=== PATIENT | male | born 1965 | race Two or more races ===

== ENCOUNTER 2025-02-10 12:24 | Emergency (ER) | payer OTHER, SELFPAY ==
[2025-02-10 12:32] VITALS: BP 170/90; PULSE 62; RESP 18; TEMP 37.1; O2SAT 96; BMI 23.9
--- NOTE | 2025-02-10 12:34 | XR_ITS ---
Examination: Shoulder,left, 3 views Technique: Shoulder AP internal rotation, AP external rotation, Y view shoulder, 3 views Exam date and time :February 10, 2025 1237 hours INDICATIONS: Work injury to the shoulder today, shoulder pain. FINDINGS: Advanced glenohumeral joint No shoulder fracture or dislocation No foreign body IMPRESSION: No shoulder fracture or dislocation
--- NOTE | 2025-02-10 12:34 | XR_ITS ---
Examination: Humerus 2 views left Technique: Humerus, AP lateral 2 views Date and time of exam: February 10, 2025 1231 hours INDICATIONS: Work injury to the arm today, arm pain. FINDINGS: Advanced narrowing glenohumeral joint No acute fracture of the humerus No shoulder dislocation IMPRESSION: No acute fracture
--- NOTE | 2025-02-10 12:34 | XR_ITS ---
Examination: PA lateral chest 2 views TECHNIQUE: Upright PA lateral chest 2 views Date and time: February 10, 2025 1242 hours INDICATIONS: Injury to the shoulder today, shoulder pain. FINDINGS: Subsegmental atelectasis in the right upper lobe Normal heart size No pneumothorax Clavicles ribs bones of the shoulders and thoracic vertebral bodies appear intact IMPRESSION: No pneumothorax or pulmonary contusion
[2025-02-10] MEDS: HYDROcodone/APAP 5/325 TABLET 1 TAB PO (12:55)
[2025-02-10] MEDS: IBUPROFEN TAB 400 MG TABLET 800 MG PO (12:56)
--- NOTE | 2025-02-10 13:42 | PD.EDUPEX ---
Upper Extremity Injury RME/HPI General Chief Complaint: Extremity Injury, Upper Stated Complaint: Left arm pulled into belt at work Time Seen by Provider: 02/10/25 13:14 Arrival date/time: 02/10/25 12:24 59-year-old male presents to the emergency department today stating that he was at work today and his sleep from his short got caught in the conveyor belt patient reports left arm pain at this time mostly in the left shoulder Limitations: no limitations Related Data Previous Rx's ?Medication ?Instructions ?Recorded hydrocodone 5 mg-acetaminophen 325 1 tab PO BID PRN pain #10 tabs 02/10/25 mg tablet ibuprofen 800 mg tablet 800 mg PO TID PRN pain #30 tabs 02/10/25 Allergies Allergy/AdvReac Type Severity Reaction Status Date / Time NKA Allergy Uncoded 02/10/25 12:27 Review of Systems Review of Systems Systems Reviewed: All systems reviewed, normal except as documented Constitutional Constitutional: Reports system reviewed and no additional complaints, except as documented, Denies fever(s) and Denies headache(s) Eyes Eyes: Reports system reviewed and no additional complaints, except as documented and Denies blurry vision ENT Ears, Nose, Mouth, and Throat: Reports system reviewed and no additional complaints, except as documented, Denies headache(s), Denies nasal congestion and Denies nasal discharge Cardiovascular Cardiovascular: Reports system reviewed and no additional complaints, except as documented, Denies chest pain and Denies dyspnea Respiratory Respiratory: Reports system reviewed and no additional complaints, except as documented, Denies chest congestion, Denies cough and Denies dyspnea Gastrointestinal Gastrointestinal: Reports system reviewed and no additional complaints, except as documented and Denies abdominal pain Musculoskeletal Musculoskeletal: Reports system reviewed and no additional complaints, except as documented, Reports arthralgias, Denies deformity, Denies numbness, Reports stiffness and Denies tingling Integumentary/Breasts Skin/Breast: Reports system reviewed and no additional complaints, except as documented and Denies rash Neurologic Neurologic: Reports system reviewed and no additional complaints, except as documented, Reports as per HPI, Denies headache(s), Denies numbness and Denies tingling Past Medical History Social History SMOKING STATUS: Never smoker ED Exam General Limitations: Present no limitations General appearance: Present alert and in no apparent distress Head Head exam: Present atraumatic Eye Eye exam: Present normal appearance, PERRL and EOMI ENT ENT exam: Present normal exam, normal oropharynx and mucous membranes moist Neck Neck exam: Present normal inspection, full ROM and trachea midline Chest Chest inspection: Present normal inspection and symmetric chest wall rise Respiratory Respiratory exam: Present normal lung sounds bilaterally Cardiovascular Cardiovascular exam: Present regular rate, normal rhythm and normal heart sounds Abdominal Exam Abdominal exam: Present soft and normal bowel sounds Extremities Exam Extremities exam: Present full ROM, tenderness and normal capillary refill; Absent joint swelling Back Exam Back exam: Present normal inspection and full ROM Neurological Exam Neurological exam: Present alert, oriented X3 and CN II-XII intact Psychiatric Psychiatric exam: Present normal affect and normal mood Skin Skin exam: Present warm, dry, intact and normal color Course Quality Measures none Orders Category Date Time Status sling [Splint / Immobilizer] STAT Care 02/10/25 13:47 Completed XR chest 2V Stat Exams 02/10/25 12:34 Completed XR humerus LT MIN 2V Stat Exams 02/10/25 12:34 Completed XR shoulder LT min 2V Stat Exams 02/10/25 12:34 Completed HYDROcodone*/APAP 5/325 [[place] 5/325] Med 02/10/25 12:35 Discontinued 1 tab PO X1 ONE Ibuprofen Tab [Motrin Tab] Med 02/10/25 12:35 Discontinued 800 mg PO X1 ONE Vital Signs Vital signs: Vital Signs Temperature 98.8 F 02/10/25 12:32 Pulse Rate 62 02/10/25 12:32 Respiratory Rate 18 02/10/25 12:32 Blood Pressure 170/90 H 02/10/25 12:32 Pulse Oximetry (%) 96 02/10/25 12:32 Oxygen Delivery Method Room Air 02/10/25 12:32 O2 saturation 96% room air within normal limits Extremity Injury MDM Narrative MDM Narrative:: 59-year-old male presents to the emergency department today stating that he was at work today and his sleep from his short got caught in the conveyor belt patient reports left arm pain at this time mostly in the left shoulder Patient appears to be in quite a bit of pain patient given pain medication here Imaging obtained no acute emergent findings noted I suspect patient most likely has a rotator cuff injury Patient placed in a sling Patient discharged with pain medication Explained to patient he must follow-up Workmen's Compensation doctor request MRI for emergent concerns return immediately Patient data External records reviewed:: None Clinical information provided by:: patient Social determinants that could affect healthcare access:: none Patient has the following chronic illnesses:: None How is presenting disease/condition affected by chronic disease/condition?: no chronic disease Evaluation data The following diagnostics were reviewed and interpreted by me:: radiology exam(s) Lab and/or radiology exams considered but not ordered:: Radiology obtain Interpretation Summary: Reviewed by me Medications / Prescriptions Medications or Prescriptions considered but not ordered:: Given Medication administrations:: Medication Administration History Discontinued Medications Hydrocodone Bitart/Acetaminophen (Hydrocodone/Apap 5/325 Tablet) 1 tab PO X1 ONE Stop: 02/10/25 12:36 Last Admin: 02/10/25 12:55 Dose: 1 tab Documented By: Ibuprofen (Ibuprofen Tab 400 Mg Tablet) 800 mg PO X1 ONE Stop: 02/10/25 12:36 Last Admin: 02/10/25 12:56 Dose: 800 mg Documented By: Given Consultations Consultation(s) initiated? (list below): No Diagnosis Upper Extremity Injury Differential Diagnosis: other (Shoulder sprain) Most likely diagnosis given after review of the tests above:: Shoulder sprain Admission Indicated Admission indicated?: not indicated Admission Request Was there a request for admission?: No Disposition Plan Disposition Plan: Discharge Discharge Attestation Discharge Attestation: The patient and all family members were given an opportunity to ask questions and understood the discharge instructions. Discharge instructions specifically effects, indications for sooner follow up or return to the emergency department, and the expected course of current diagnosis. Patient condition: Stable Discharge Plan Plan Patient Disposition: HOME (Self Care) Discharge Disposition comment: Stable Prescriptions/Referrals Prescriptions/Med Rec: New ibuprofen 800 mg tablet 800 mg PO TID PRN (Reason: pain) Qty: 30 0RF hydrocodone-acetaminophen 5-325 mg tablet 1 tab PO BID MDD 10 PRN (Reason: pain) Qty: 10 0RF Problem List Clinical Impression: Acute pain of left shoulder, Work related injury Patient/Caregiver Discharge Instructions Education Materials: ED Arthralgia Additional Instructions: Please follow up with your Workmen's Compensation doctor in the next 24-48hrs for any worsening symptoms return here immediately I highly advise you get an MRI on an outpatient basis Print Language: English Stand Alone Forms: [facility] Award Info., Patient Portal Info Letter PA/COMMUNITY [employer] Supervising Physician SELAM/ECTOR Supervising Physician: Dr. mercado
== END 2025-02-10 14:34 | disposition home or self-care (01) ==
PROVIDERS: Emergency Provider Emergency Medicine
DX: M25.512 Pain in left shoulder (principal); Y99.0 Civilian activity done for income or pay
CPT/HCPCS: 71046; 73030; 73060; 99283; A9270